=== PATIENT | male | born 1990 | race Caucasian/White ===

== ENCOUNTER 2021-02-24 11:33 | Emergency (ER) | payer OTHER, SELFPAY ==
--- NOTE | 2021-02-24 11:40 | ED.WOUNDLAC ---
HPI - Wound/Laceration General Chief Complaint: Wound/Laceration Stated Complaint: Laceration to Thumb Source: patient and RN notes reviewed Mode of arrival: ambulatory Limitations: no limitations History of Present Illness HPI narrative: 30-year-old male presents with concern for laceration to the first digit of the left hand. Reports he sustained the injury last night around 1030 when he was slicing potatoes with a knife. Reports he washed the wound and applied a bandage. Reports this morning the wound felt infected and started bleeding again. Extremity Location: Left: hand Related Data Home Medications Medication Instructions Recorded Confirmed No Home Medications 02/24/21 02/24/21 Allergies Allergy/AdvReac Type Severity Reaction Status Date / Time Sulfa (Sulfonamide Allergy Unknown Unknown Verified 02/24/21 11:52 Antibiotics) Review of Systems Review of Systems: CONSTITUTIONAL: Denies malaise, chills, sweats, or fever. SKIN: Reports laceration to the first digit of the left hand MUSCULOSKELETAL: Denies muscle skeletal pain, decrease strength, range of motion, or sensation NEUROLOGIC: Denies numbness, weakness All systems reviewed & are unremarkable except as noted in HPI and below PMFSH Comments At time of signature, agree with nursing past medical, surgical, social and family history. There is no relevant family history pertinent to the presenting complaint Exam Narrative: GENERAL: Well-appearing, well-nourished, and in no acute distress. HEAD: Normocephalic EYES: PERRLA, conjunctivae clear NECK: Supple. CHEST: Speaks in full sentences. No respiratory distress. HEART: Regular rate and rhythm. Normal and equal peripheral pulses. EXTREMITIES: First digit of left hand has normal strength and sensation. 5/5 strength with digit flexion, extension. Range of motion normal. Normal digital cascade with flexion of fingers, median, ulnar and radial nerve intact. Normal sensation of each side of finger. Normal thumb opposition. Good capillary refill and radial pulse. Distal capillary refill less than 3 seconds. SKIN: Warn, dry, intact, pink. No rash. 2 cm laceration noted to the distal end of the first digit of the left hand, edges approximated, no current bleeding noted. No erythema, edema, induration surrounding the wound. NEURO: Alert and oriented x3. PSYCH: Normal mood and affect Course Course Emergency Course: Wound clean, Steri-Strips applied. Discussed with patient option of using glue or Steri-Strips, risks and benefits to both, patient chose to Steri-Strips. Patient is aware of diagnosis, understands and agrees to treatment plan. Anticipatory guidance given. Patient agrees to follow-up as directed and is aware of reasons to seek care at the emergency department. Portions of this record may have been created with voice recognition software Vital Signs Vital signs: Reviewed. MDM - Wound/Laceration MDM Narrative Medical decision making narrative: Exam findings show no acute concerns or changes; patient is non-toxic appearing and is in no distress. Patient is appropriate for outpatient treatment and follow-up. Critical Care Time Critical Care Time Critical Care Time: No Discharge Plan Discharge Clinical Impression: Laceration Patient Disposition: Home, Self-Care Condition: Stable Instructions: Finger Laceration (ED) Additional Instructions: Keep wound clean, and dry. Apply antibiotic ointment twice daily. Cover with bandage as needed to prevent contamination. Do not clean with hydrogen peroxide. If any signs of infection such as redness, swelling, increasing pain, drainage of purulent discharge, streaks up your extremity develop, seek medical attention immediately. Prescriptions: No Action No Home Medications RF: 0 Follow-up/Referrals: PHYSICIAN,METAL ROASTER [Primary Care Provider] - Stand Alone Forms: Work/School Release IP Time of Disposition: 12:11
[2021-02-24 11:41] VITALS: BP 129/83; PULSE 83; RESP 16; TEMP 37.2; O2SAT 99
[2021-02-24 11:53] VITALS: BP 129/83; PULSE 83; RESP 16; TEMP 37.2; O2SAT 99
== END 2021-02-24 12:15 | disposition home or self-care (01) ==
PROVIDERS: Emergency Provider Nurse Practitioner
DX: S61.012A Laceration without foreign body of left thumb without damage to nail, initial encounter (principal); W26.0XXA Contact with knife, initial encounter
CPT/HCPCS: 99212; G0463

== ENCOUNTER 2022-04-17 10:37 | Emergency (ER) | payer OTHER, SELFPAY ==
[2022-04-17 10:47] VITALS: BP 121/80; PULSE 94; RESP 18; TEMP 37; O2SAT 100
--- NOTE | 2022-04-17 11:52 | ED.ABDPAIN ---
HPI - Abdominal Pain General Chief Complaint: Abdominal Pain Stated Complaint: Abdominal Pain Time Seen by Provider: 04/17/22 11:55 Source: patient and RN notes reviewed Mode of arrival: ambulatory Limitations: no limitations History of Present Illness HPI narrative: 31-year-old male presents concern for right lower abdominal pain. He denies tenderness. He denies vomiting, diarrhea. He reports he has been slightly constipated over the last several days. He reports pain worsens when he moves from sitting to standing or vice versa. He reports putting pressure on the area helps to relieve the pain when he is moving. He denies any particular injury. 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 He denies any bulges in his abdomen or groin. He reports he is having a bowel movement every 2-3 days. MD elicited complaint: abdominal pain Related Data Home Medications Medication Instructions Recorded Confirmed No Home Medications 02/24/21 04/17/22 Allergies Allergy/AdvReac Type Severity Reaction Status Date / Time Sulfa (Sulfonamide Allergy Unknown Unknown Verified 04/17/22 10:49 Antibiotics) Review of Systems Review of Systems: CONSTITUTIONAL: Denies malaise, chills, sweats, or fever. EYES: Denies visual changes, redness, or discharge. ENT: Reports rhinorrhea, congestion, sinus pain, otalgia and sore throat. CARDIOVASCULAR: Denies chest pain, palpitations, or edema. RESPIRATORY: Reports cough. Denies dyspnea. GASTROINTESTINAL: Reports right lower abdominal pain. Reports slight constipation. Denies Nausea, vomiting, diarrhea SKIN: Denies rash or itching. MUSCULOSKELETAL: Denies myalgia. NEUROLOGIC: Denies headache. All systems reviewed & are unremarkable except as noted in HPI and below PMFSH Comments At time of signature, agree with nursing past medical, surgical, social and family history. There is no relevant family history pertinent to the presenting complaint Exam Narrative: GENERAL: Well-appearing, well-nourished, and in no acute distress. HEAD: Normocephalic, atraumatic. EYES: PERRLA, conjunctivae clear, and EOMI. ENT: Nares clear, turbinates pink, no rhinorrhea or epistaxis. Mucous membranes moist. Oropharynx without edema, erythema, or lesions. Tonsils not enlarged and without exudate. NECK: Supple. No lymphadenopathy CHEST: Speaks in full sentences. No respiratory distress. HEART: Regular rate and rhythm. ABDOMEN: Soft, flat, non-tender, nondistended. No guarding, rebound tenderness, or rigidity. No pulsatile masses. Bowel sounds present in all four quadrants. No organomegaly. Negative Vickers?s sign. No periumbilical tenderness. No supra-pubic tenderness or distension. Good femoral pulses bilaterally. No hernia noted. No scars or surface trauma. SKIN: Warm, dry, no rash. NEURO: Alert and oriented x3. PSYCH: Normal mood and affect Course Course Emergency Course: Patient is aware of diagnosis, understands and agrees to treatment plan. Anticipatory guidance given. Patient agrees to follow-up as directed and is aware of reasons to seek care at the emergency department. Portions of this record may have been created with voice recognition software Level of Care: Express Care Visit Vital Signs Vital signs: Vital Signs Temperature 98.6 F 04/17/22 10:47 Pulse Rate 94 04/17/22 10:47 Respiratory Rate 18 04/17/22 10:47 Blood Pressure 121/80 04/17/22 10:47 Pulse Oximetry 100 04/17/22 10:47 Oxygen Delivery Room Air 04/17/22 10:47 Temperature 98.6 F 04/17/22 10:47 Pulse Rate 94 04/17/22 10:47 Respiratory Rate 18 04/17/22 10:47 Blood Pressure 121/80 04/17/22 10:47 Pulse Oximetry 100 04/17/22 10:47 Oxygen Delivery Room Air 04/17/22 10:47 Reviewed. MDM - Abdominal Pain MDM Narrative Medical decision making narrative: No evidence of pancreatitis, AAA, cholecystitis, choledocholithiasis, cholangitis, mesenteric ischemia, small bowel obstruction,
== END 2022-04-17 12:10 | disposition home or self-care (01) ==
PROVIDERS: Emergency Provider Nurse Practitioner
DX: R10.31 Right lower quadrant pain (principal)
CPT/HCPCS: 99211; G0463